=== PATIENT | male | born 1995 | race Caucasian/White ===

== ENCOUNTER → 2018-02-04 | Outpatient (CLI) | payer OTHER ==
--- NOTE | 2018-02-04 12:21 | MR ---
EXAMINATION TYPE: MR brain wo/w con DATE OF EXAM: 02/04/2018 COMPARISON: Correlation CT chest 02/02/2014 HISTORY: 22-year-old male brain tumor, Headache TECHNIQUE: Multiplanar, multisequence images of the brain and brainstem were acquired before and aft er administration of 10 mL IV Gadavist. Diffusion weighted imaging is performed. FINDINGS: There is redemonstration of a rounded CSF space along the midline above the cerebellum with mild mass effect onto the superior aspect of the cerebellum. This measures 2.8 cm AP by 1.6 cm craniocaudal by 2.0 cm wide, relatively stable as compared to the CT of 2014. No evidence for acute infarction, hemorrhage, midline shift shift, effacement of basal cisterns, or o therwise any extra-axial fluid collection. The ventricles and sulci are age-appropriate. The left vertebral artery is dominant. Major intracranial flow voids are intact. T2/FLAIR weighted sequences show no white matter signal abnormality. Midline structures demonstrate normal morphology. There is 5 mm of right-sided cerebellar tonsillar herniation and 3 mm on the left. No macie tonsillar beaking is identified. Otherwise, the craniocervi wisam junction is normal. Post contrast images demonstrate no evidence of pathologic enhancement. Dural venous sinuses are pat ent. Mild mucosal thickening throughout the ethmoid air cells and maxillary sinuses. Globes are intact. IMPRESSION: 1. 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 This is relatively unchanged in size as compared to the CT of 2014 . 2. Low-lying cerebellar tonsils measuring 5 mm on the right and 3 mm on the left. On the right, this is intermediate between benign cerebellar tonsillar ectopia and Chiari 1 malformation. No macie tonsi llar beaking. Uncertain if the above-mentioned cystic lesion is contributing to mass effect and this tonsillar ectopia. 3. Mild chronic ethmoid and maxillary sinus disease. 4. Otherwise, no intracranial abnormality seen.
== END | disposition home or self-care (01) ==
LOC: RADMRIMAIN 09:07
PROVIDERS: ATTEND Psychiatry & Neurology Neurology
DX: G93.5 Compression of brain (principal)
CPT/HCPCS: 70553; A9585

== ENCOUNTER 2019-02-04 23:51 | Emergency (ER) | payer OTHER ==
[2019-02-05 00:03] VITALS: TEMP 98.1
[2019-02-05] MEDS ORDERED: KETOROLAC 30 MG/ML 1 ML VIAL IVP STA (01:20)
[2019-02-05] MEDS ORDERED: HYDROmorphone 0.5 MG/0.5 ML SYRINGE IVP STA (01:20)
[2019-02-05] MEDS ORDERED: SODIUM CHLORIDE 0.9% 1,000 ML IV STA (01:20)
[2019-02-05] MEDS ORDERED: ONDANSETRON 4 MG/2 ML VIAL IVP STA (01:20)
--- NOTE | 2019-02-05 01:56 | ED ---
Abdominal Pain HPI - General Chief Complaint: Abdominal Pain Stated Complaint: Back Pain Time Seen by Provider: 02/05/19 00:46 Source: patient Mode of arrival: ambulatory Limitations: no limitations - History of Present Illness Initial Comments: 23-year-old male patient presents to the emergency department today for evaluation of bilateral flank pain and abdominal pain. Patient states he is having flank pain for the last couple of weeks. States the pain worsened today and now includes his upper abdomen. He is reporting nausea, but no vomiting. He reports three episodes of diarrhea. Denies any color change to his stool. Denies hematuria , dysuria, or urinary retention. States that he did have outpatient ultrasound of the kidneys which showed evidence for kidney stone. Denies fever or chills. Denies any recent travel or sick contacts. Denies any recent antibiotic use. Patient denies any recent shortness breath, chest pain, numbness, tingling, dizziness, weakness, headache, visual changes, or any other complaints. - Related Data Previous Rx's Medication Instructions Recorded Cyclobenzaprine [Flexeril] 10 mg PO TID PRN #20 tab 01/05/16 Ibuprofen [Motrin] 800 mg PO Q8HR PRN #20 tab 01/05/16 Ondansetron [Zofran ODT] 4 mg PO Q8HR PRN #10 tab 02/05/19 Allergies Allergy/AdvReac Type Severity Reaction Status Date / Time codeine AdvReac Rash/Hives Verified 02/05/19 00:03 Review of Systems ROS Statement: Those systems with pertinent positive or pertinent negative responses have been documented in the HPI. ROS Other: All systems not noted in ROS Statement are negative. Past Medical History Past Medical History: No Reported History History of Any Multi-Drug Resistant Organisms: None Reported Additional Past Surgical History / Comment(s): testicle removed Past Psychological History: No Psychological Hx Reported Smoking Status: Current every day smoker Past Alcohol Use History: Occasional Past Drug Use History: None Reported General Exam Limitations: no limitations General appearance: alert, in no apparent distress, other (this is a well- developed, well-nourished adult male patient in no acute distress. ) Eye exam: Present: normal appearance, PERRL, EOMI. Absent: scleral icterus, conjunctival injection, periorbital swelling ENT exam: Present: normal exam, normal oropharynx, mucous membranes moist Respiratory exam: Present: normal lung sounds bilaterally. Absent: respiratory distress, wheezes, rales, rhonchi, stridor Cardiovascular Exam: Present: regular rate, normal rhythm, normal heart sounds. Absent: systolic murmur, diastolic murmur, rubs, gallop, clicks GI/Abdominal exam: Present: soft, tenderness (upper abdominal tenderness), normal bowel sounds. Absent: distended, guarding, rebound, rigid Back exam: Present: normal inspection, CVA tenderness (R), CVA tenderness (L) Neurological exam: Present: alert, oriented X3, CN II-XII intact Psychiatric exam: Present: normal affect, normal mood Skin exam: Present: warm, dry, intact, normal color. Absent: rash Course Vital Signs 02/05/19 02/05/19 00:01 03:42 Temperature 98.1 F Pulse Rate 121 H 87 Respiratory 20 18 Rate Blood Pressure 126/67 109/60 O2 Sat by Pulse 98 96 Oximetry Medical Decision Making - Medical Decision Making 23-year-old male patient presented to the emergency department today for e valuation of upper abdominal pain, bilateral flank pain, nausea, and diarrhea. Physical examination revealed upper abdominal tenderness. Bilateral CVA tenderness. CT of the abdomen and pelvis was obtained and showed evidence for renal stones with no obstructing stone noted. Normal liver, pancreas, and gallbladder. He is afebrile normal vital signs. Labs reviewed and did reveal elevated liver enzymes. I did discuss findings and results the patient. Be discharged home to have outpatient ultrasound. Results will be sent to his physician. Return parameters were discussed in detail. He verbalizes understanding and agrees with this plan. - Lab Data Result diagrams: 02/05/19 01:45 02/05/19 01:45 Lab Results 02/05/19 02/05/19 02/05/19 Range/Units 01:45 01:45 02:00 WBC 12.2 H (3.8-10.6) k/uL RBC 5.39 (4.30-5.90) m/uL Hgb 17.4 (13.0-17.5) gm/dL Hct 51.4 (39.0-53.0) % MCV 95.3 (80.0-100.0) fL MCH 32.3 (25.0-35.0) pg MCHC 33.9 (31.0-37.0) g/dL RDW 12.8 (11.5-15.5) % Plt Count 287 (150-450) k/uL Neutrophils % 88 % Lymphocytes % 6 % Monocytes % 3 % Eosinophils % 1 % Basophils % 1 % Neutrophils # 10.7 H (1.3-7.7) k/uL Lymphocytes # 0.8 L (1.0-4.8) k/uL Monocytes # 0.4 (0-1.0) k/uL Eosinophils # 0.2 (0-0.7) k/uL Basophils # 0.1 (0-0.2) k/uL Sodium 139 (137-145) mmol/L Potassium 4.7 (3.5-5.1) mmol/L Chloride 104 (98-107) mmol/L Carbon Dioxide 24 (22-30) mmol/L Anion Gap 11 mmol/L BUN 17 (9-20) mg/dL Creatinine 1.20 (0.66-1.25) mg/dL Est GFR (CKD-EPI)AfAm >90 (>60 ml/min/1.73 sqM) Est GFR (CKD-EPI)NonAf 84 (>60 ml/min/1.73 sqM) Glucose 135 H (74-99) mg/dL Calcium 10.1 (8.4-10.2) mg/dL Total Bilirubin 0.9 (0.2-1.3) mg/dL AST 61 H (17-59) U/L ALT 135 H (4-49) U/L Alkaline Phosphatase 96 (38-126) U/L Total Protein 8.3 H (6.3-8.2) g/dL Albumin 4.9 (3.5-5.0) g/dL Amylase 77 (30-110) U/L Lipase 259 (23-300) U/L Urine Color Yellow Urine Appearance Clear (Clear) Urine pH 5.5 (5.0-8.0) Ur Specific [place] 1.032 (1.001-1.035) Urine Protein Trace H (Negative) Urine Glucose (UA) Negative (Negative) Urine Ketones Negative (Negative) Urine Blood Negative (Negative) Urine Nitrite Negative (Negative) Urine Bilirubin Negative (Negative) Urine Urobilinogen <2.0 (<2.0) mg/dL Ur Leukocyte Esterase Negative (Negative) - Radiology Data Radiology results: report reviewed, image reviewed CT abdomen and pelvis with contrast was obtained. Report was reviewed in its entirety. Impression by Dr. Miranda shows nonobstructing multiple bilateral renal calculi. Due to compared to old exam. No renal obstruction. Normal appendix Disposition Clinical Impression: Abdominal pain, Elevated liver enzymes Disposition: HOME SELF-CARE Condition: Good Instructions (If sedation given, give patient instructions): Abdominal Pain (ED), Low Fat Diet (ED) Additional Instructions: Start with clear liquid diet and advance as tolerated. Take nausea medication as directed. Follow-up outpatient for ultrasound, call the hospital in the morning to schedule your appointment. Follow-up with your primary care physician for recheck as soon as possible. Have liver enzyme testing repeated. Return to the emergency department immediately for any new, worsening, or concerning symptoms. Prescriptions: Ondansetron [Zofran ODT] 4 mg PO Q8HR PRN #10 tab PRN Reason: Nausea Is patient prescribed a controlled substance at d/c from ED?: No Referrals: Schuyler Velásquez MD [STAFF PHYSICIAN] - 1-2 days Time of Disposition: 04:11
[2019-02-05 02:00] LABS: Basophils # (A) 0.1 k/uL (0-0.2); Basophils % (A) 1 %; Eosinophils # (A) 0.2 k/uL (0-0.7); Eosinophils % (A) 1 %; HCT 51.4 % (39.0-53.0); HGB 17.4 gm/dL (13.0-17.5); Lymphocytes # (A) 0.8 k/uL (1.0-4.8); Lymphocytes % (A) 6 %; MCH 32.3 pg (25.0-35.0); MCHC 33.9 g/dL (31.0-37.0); MCV 95.3 fL (80.0-100.0); Mean Platelet Volume 7.1; Monocytes # (A) 0.4 k/uL (0-1.0); Monocytes % (A) 3 %; Neutrophils # (A) 10.7 k/uL (1.3-7.7); Neutrophils % (A) 88 %; Platelet Count 287 k/uL (150-450); RBC 5.39 m/uL (4.30-5.90); RDW 12.8 % (11.5-15.5); WBC 12.2 k/uL (3.8-10.6)
[2019-02-05 02:09] LABS: ALT 135 U/L (4-49); AST 61 U/L (17-59); African American GFR (CKD) >90 (>60 ml/min/1.73 sqM); Albumin 4.9 g/dL (3.5-5.0); Alkaline Phosphatase 96 U/L (38-126); Amylase 77 U/L (30-110); Anion Gap 11 mmol/L; Blood Urea Nitrogen 17 mg/dL (9-20); Calcium 10.1 mg/dL (8.4-10.2); Carbon Dioxide 24 mmol/L (22-30); Chloride 104 mmol/L (98-107); Glucose 135 mg/dL (74-99); Non-African American GFR(CKD) 84 (>60 ml/min/1.73 sqM); Potassium 4.7 mmol/L (3.5-5.1); Sodium 139 mmol/L (137-145); Total Bilirubin 0.9 mg/dL (0.2-1.3); Total Protein 8.3 g/dL (6.3-8.2)
[2019-02-05 02:31] LABS: Appearance,Urine Clear (Clear); Bilirubin,Urine Negative (Negative); Blood,Urine Negative (Negative); Color,Urine Yellow; Glucose,Urine (UA) Negative (Negative); Ketones,Urine Negative (Negative); Leukocyte Esterase,Urine Negative (Negative); Nitrite,Urine Negative (Negative); PH, Urine 5.5 (5.0-8.0); Protein,Urine Trace (Negative); Specific Gravity,Urine 1.032 (1.001-1.035); Urobilinogen,Urine <2.0 mg/dL (<2.0)
--- NOTE | 2019-02-05 03:39 | CT ---
EXAMINATION TYPE: CT abdomen pelvis w con DATE OF EXAM: 02/05/2019 COMPARISON: 08/09/2013 HISTORY: pain CT DLP: 1266.7 mGycm Automated exposure control for dose reduction was used. CONTRAST: Performed with IV Contrast, patient injected with 100 mL of Isovue 300. Lung bases are clear of infiltrate. There is no pleural effusion. Heart size is normal. There is no p ericardial effusion. Liver spleen stomach pancreas gallbladder appear normal. Bile ducts are not dila jatin. There is no adrenal mass. Kidneys show satisfactory contrast opacification. There is no hydronep hrosis. There are bilateral multiple small renal calculi that measure up to 3 mm. Ureters are not dil ated. There is no retroperitoneal adenopathy. Bladder distends smoothly. There is no evidence of ingu inal hernia. There is no free fluid in the pelvis. There is no mesenteric edema. There is no ascites or free air. There is no sign of a pelvic mass. There is no evidence of bowel obstruction. Appendix appears normal. Lumbar spine is intact. The bony pelvis is intact. IMPRESSION: Nonobstructing multiple bilateral renal calculi appear new compared to old exam. No renal obstruction . Normal appendix.
[2019-02-05 03:43] VITALS: BP 109/60; PULSE 87; RESP 18
[2019-02-05] MEDS ORDERED: traMADol 50 MG STARTER PACK 3 TAB BTL PO STA (04:22)
== END 2019-02-05 04:26 | disposition home or self-care (01) ==
LOC: EC 23:51
DX: R74.8 Abnormal levels of other serum enzymes (principal); R10.10 Upper abdominal pain, unspecified; N20.0 Calculus of kidney; M54.9 Dorsalgia, unspecified; R11.0 Nausea; R19.7 Diarrhea, unspecified; F17.200 Nicotine dependence, unspecified, uncomplicated; Z88.5 Allergy status to narcotic agent
CPT/HCPCS: 36415; 74177; 80053; 81003; 82150; 83690; 85025; 96361; 96374; 96375; 99284

== ENCOUNTER → 2019-02-05 | Outpatient (CLI) | payer OTHER ==
--- NOTE | 2019-02-06 10:42 | US ---
EXAMINATION TYPE: US liver DATE OF EXAM: 02/05/2019 COMPARISON: CT dated 02/05/2019 CLINICAL HISTORY: R94.5 Elevated liver enzymes R10.84 abdominal pain. EXAM MEASUREMENTS: Liver Length: 14.3 cm Gallbladder Wall: 0.2 cm CBD: 0.3 cm Right Kidney: 10.5 x 3.8 x 5.5 cm Pancreas: Obscured by bowel gas Liver: some probable focal fatty sparing adjacent to gb, echotexture is coarse Gallbladder: wnl Evidence for sonographic Fuentes's sign: no CBD: wnl Right Kidney: stones on CT not identified on today's ultrasound There is no ascites. IMPRESSION: Correlate for hepatic steatosis. Exam is limited.
== END | disposition home or self-care (01) ==
LOC: RADUSWWP 13:36
PROVIDERS: ATTEND Emergency Medicine
DX: K76.0 Fatty (change of) liver, not elsewhere classified (principal)
CPT/HCPCS: 76705